=== PATIENT | female | born 1965 | race Two or more races ===

== ENCOUNTER 2025-02-07 23:54 | Emergency (ER) | payer OTHER ==
[2025-02-10] MEDS ORDERED: AMLODIPINE (03:23)
[2025-02-10] MEDS ORDERED: VAZALORE81 MG (03:23)
[2025-02-10] MEDS ORDERED: METFORMIN HCL500 MG (03:23)
[2025-02-10] MEDS ORDERED: HYDRODIURIL12.5 MG (03:24)
[2025-02-10] MEDS ORDERED: METROCREAM45 GM VAG (03:42)
== END 2025-02-08 | disposition home or self-care (01) ==
LOC: ER 23:54
DX: N76.0 Acute vaginitis (principal)

== ENCOUNTER → 2025-02-10 | Emergency (ER) | payer OTHER ==
[~2025-02-10] VITALS: Ht 162.6 cm; Wt 84.4 kg
[~2025-02-10] MED LIST: AMLODIPINE; HYDRODIURIL12.5 MG; METFORMIN HCL500 MG; METROCREAM45 GM VAG; VAZALORE81 MG
== END | disposition home or self-care (01) ==
LOC: ER 03:11
DX: N76.0 Acute vaginitis (principal); B96.89 Other specified bacterial agents as the cause of diseases classified elsewhere; E11.9 Type 2 diabetes mellitus without complications; Z79.84 Long term (current) use of oral hypoglycemic drugs

== ENCOUNTER 2025-03-15 22:21 | Emergency (ER) | payer OTHER ==
[~2025-03-15] VITALS: Ht 162.6 cm; Wt 81.6 kg
== END 2025-03-15 23:44 | disposition left against medical advice (07) ==
LOC: ER 22:21
DX: Z53.21 Procedure and treatment not carried out due to patient leaving prior to being seen by health care provider (principal)

== ENCOUNTER → 2025-04-02 | Emergency (ER) | payer OTHER | END | disposition left against medical advice (07) | LOC: ER 04:40 | DX: Z53.21 Procedure and treatment not carried out due to patient leaving prior to being seen by health care provider (principal) ==

== ENCOUNTER 2025-05-29 19:54 | Inpatient (IN) | payer OTHER ==
[~2025-05-29] VITALS: Ht 170.2 cm; Wt 81.6 kg
[2025-05-29] MEDS ORDERED: 0.9 % SODIUM CHLORIDE 1,000 ML IV STA (21:09)
[2025-05-29] MEDS ORDERED: FAMOTIDINE/PF 20 MG/2 ML VIAL IV STA (21:09)
[2025-05-29] MEDS ORDERED: ONDANSETRON HCL 2 MG/ML VIAL IV STA (21:09)
[2025-05-29] MEDS ORDERED: METOCLOPRAMIDE HCL 5 MG/ML VIAL IV ONE (21:15)
[2025-05-29] MEDS ORDERED: METOCLOPRAMIDE HCL 5 MG/ML VIAL ONE (21:15)
[2025-05-29] MEDS ORDERED: FAMOTIDINE/PF 20 MG/2 ML VIAL ONE (21:15)
[2025-05-29] MEDS ORDERED: ONDANSETRON HCL 2 MG/ML VIAL ONE (21:15)
[2025-05-29 21:38] LABS: BASO % 0.0 % (0.1-1.2); EOS # 0.00 (0.04-0.54); EOS % 0.0 % (0.7-7.0); LYMPH # 0.55 (1.18-3.74); LYMPH % 16.4 % (19.3-53.1); MEAN PLATELET VOLUME 9.30 fl (9.4-12.4); MONO # 0.39 (0.24-0.82); MONO % 11.6 % (4.7-12.5); NEUT # 2.40 (1.56-6.13); NEUT % 71.4 % (34.0-71.1); RED CELL DISTRIBUTION WIDTH 13.1 % (11.6-14.4)
[2025-05-29 22:08] LABS: BUN CREA RATIO 25.0 (7.0-25.0); CREATININE SERUM 1.08 mg/dL (0.55-1.02); GFR 51.75
[2025-05-29 22:28] LABS: GLUCOSE FASTING 230.0 mg/dL (65-100); OSMOLALITY SERUM 286.0 MOSM/KG (275-295)
[2025-05-29] MEDS ORDERED: POTASSIUM BICARBONATE/CIT AC 25 MEQ TABLET.EFF PO ONE (23:00)
[2025-05-29] MEDS ORDERED: POTASSIUM CHLORIDE/D5-0.9%NACL 40 MEQ/1,000 ML PIGGYBAG IV ONE (23:00)
[2025-05-30 00:58] LABS: BUN CREA RATIO 29.0 (7.0-25.0); CREATININE SERUM 0.95 mg/dL (0.55-1.02); GFR 60.0; OSMOLALITY SERUM 284.0 MOSM/KG (275-295)
[2025-05-30 01:22] LABS: GLUCOSE FASTING 208.0 mg/dL (65-100)
[2025-05-30] MEDS ORDERED: LACTOBACILLUS ACIDOPHILUS 1 CAP CAP PO STA (04:10)
[2025-05-30] MEDS ORDERED: LACTOBACILLUS ACIDOPHILUS 1 CAP CAP PO ONE (04:44)
[2025-05-30] MEDS ORDERED: CIPROFLOXACIN IN 5 % DEXTROSE 400 MG/200 ML PIGGYBAG IV STA (05:34)
[2025-05-30] MEDS ORDERED: CIPROFLOXACIN IN 5 % DEXTROSE 400 MG/200 ML PIGGYBAG IV ONE (05:46)
[2025-05-30] MEDS ORDERED: FAMOTIDINE/PF 20 MG in 0.9 % SODIUM CHLORIDE 8 ML IV PUSH SCH (09:26)
[2025-05-30] MEDS ORDERED: DEXTROSE 50 % IN WATER 0.5 G/ML DISP.SYRIN IV PRN (09:30)
[2025-05-30] MEDS ORDERED: 0.9 % SODIUM CHLORIDE 1,000 ML IV SCH (09:30)
[2025-05-30] MEDS ORDERED: INSULIN LISPRO 1,000 UNIT/10 ML UNITS SUBCUTANEO PRN (09:30)
[2025-05-30] MEDS ORDERED: ONDANSETRON HCL 4 MG in 0.9 % SODIUM CHLORIDE 50 ML IV PRN (09:30)
[2025-05-30] MEDS ORDERED: FAMOTIDINE/PF 20 MG/2 ML VIAL ONE (09:52)
[2025-05-30] MEDS ORDERED: METRONIDAZOLE/SODIUM CHLORIDE 500 MG/100 ML PIGGYBACK IV ONE (09:52)
[2025-05-30 10:55] VITALS: BP 120/80; O2SAT 96
[2025-05-30 11:12] LABS: INR 1.07
[2025-05-30] MEDS ORDERED: ST. JOSEPH ASPI81 M2 (13:40)
[2025-05-30] MEDS ORDERED: POTASSIUM CHLORIDE IN WATER 100 ML IV SCH (17:00)
[2025-05-30 17:26] LABS: URINE APPEARANCE Clear; URINE BILIRRUBIN Negative (NEGATIVE); URINE BLOOD Negative; URINE COLOR Yellow; URINE GLUCOSE Negative (NEGATIVE); URINE KETONE Negative (NEGATIVE); URINE LEUKOCYTE Trace; URINE NITRATE Negative; URINE PROTEIN Negative (NEGATIVE); URINE UROBILINOGEN 0.2 E.U./dl
[2025-05-30 17:31] LABS: URINE BACTERIA 7777.9 uL (0.0-1933); URINE EPITHELIAL CELLS 31.2 uL (0.0-38.8); URINE WBC 69.5 uL (0.0-23.2)
[2025-05-30 17:44] LABS: URINE CAST 0.29 uL (0.0-1.40); URINE RBC 1.4 uL (0.0-20.8)
[2025-05-30 18:09] VITALS: BP 126/76; O2SAT 97
[2025-05-30] MEDS ORDERED: CIPROFLOXACIN IN 5 % DEXTROSE 200 ML IV SCH (21:00)
[2025-05-31 02:22] VITALS: BP 146/83; O2SAT 93
[2025-05-31 08:07] LABS: BASO % 0.5 % (0.1-1.2); EOS # 0.00 (0.04-0.54); EOS % 0.0 % (0.7-7.0); LYMPH # 0.55 (1.18-3.74); LYMPH % 30.1 % (19.3-53.1); MEAN PLATELET VOLUME 10.00 fl (9.4-12.4); MONO # 0.23 (0.24-0.82); NEUT # 1.03 (1.56-6.13); NEUT % 56.3 % (34.0-71.1); RED CELL DISTRIBUTION WIDTH 13.1 % (11.6-14.4)
[2025-05-31 08:10] LABS: MONO % 12.6 % (4.7-12.5)
[2025-05-31 09:23] LABS: ALT/SGPT 34.0 U/L (12-78); AST/SGOT 31.0 U/L (15-37); BILIRUBIN TOTAL 0.9 mg/dL (0.3-1.2); BUN CREA RATIO 21.0 (7.0-25.0); CREATININE SERUM 0.57 mg/dL (0.55-1.02); GFR 108.19; GLOBULINA 3.3 G/DL (2.4-3.5); GLUCOSE FASTING 154.0 mg/dL (65-100); OSMOLALITY SERUM 286.0 MOSM/KG (275-295)
[2025-05-31 10:17] VITALS: BP 144/84; O2SAT 99
[2025-05-31] MEDS ORDERED: Cyanocobalamin/Mecobalamin 1 TAB.SL SL SCH (17:00)
[2025-05-31 18:07] VITALS: BP 149/79
[2025-05-31 21:11] LABS: FE 35.0 ug/dl (50-170)
[2025-06-01] MEDS ORDERED: PIPERACILLIN/TAZOBACTAM SODIUM 3.375 GM in DEXTROSE 5 % IN WATER 100 ML IV SCH
[2025-06-01 02:33] VITALS: BP 146/84; O2SAT 96
[2025-06-01] MEDS ORDERED: DIATRIZOATE MEGLUMINE, SODIUM 30 ML BOTTLE PO ONE (06:00)
[2025-06-01 07:58] LABS: ALT/SGPT 36.0 U/L (12-78); AST/SGOT 38.0 U/L (15-37); BILIRUBIN TOTAL 1.37 mg/dL (0.3-1.2); BUN CREA RATIO 11.0 (7.0-25.0); CREATININE SERUM 0.66 mg/dL (0.55-1.02); GFR 91.35; GLOBULINA 3.7 G/DL (2.4-3.5); GLUCOSE FASTING 175.0 mg/dL (65-100); LDH 320.0 U/L (84-246); OSMOLALITY SERUM 280.0 MOSM/KG (275-295)
[2025-06-01 08:35] LABS: BASO % 0.6 % (0.1-1.2); EOS # 0.00 (0.04-0.54); EOS % 0.0 % (0.7-7.0); LYMPH # 0.56 (1.18-3.74); LYMPH % 32.4 % (19.3-53.1); MEAN PLATELET VOLUME 10.00 fl (9.4-12.4); MONO # 0.17 (0.24-0.82); MONO % 9.8 % (4.7-12.5); NEUT # 0.98 (1.56-6.13); NEUT % 56.6 % (34.0-71.1); RED CELL DISTRIBUTION WIDTH 12.6 % (11.6-14.4)
[2025-06-01] MEDS ORDERED: LACTOBACILLUS ACIDOPHILUS 1 CAP CAP PO SCH (09:00)
[2025-06-01] MEDS ORDERED: SOD FERRIC GLUC COMPLX/SUCROSE 62.5 MG/5 ML AMPUL IV SCH (09:00)
[2025-06-01 09:16] VITALS: BP 140/72; O2SAT 96
[2025-06-01] MEDS ORDERED: ACETAMINOPHEN 500 MG GEL..CAP PO PRN (10:30)
[2025-06-01 19:24] VITALS: BP 126/90
[2025-06-02 01:10] VITALS: BP 140/82; O2SAT 97
[2025-06-03 13:30] LABS: FOLIC ACID > 20.00 ng/ml (4.78-20)
== END 2025-06-02 09:11 | disposition left against medical advice (07) | DRG 641 ==
LOC: ER 19:54 → MEDJ 05-30 10:12
PROVIDERS: General Practice; Internal Medicine Hematology & Oncology; Internal Medicine Infectious Disease; ADMIT Specialist; ATTEND Specialist
PROC: BW21ZZZ Computerized Tomography (CT Scan) of Abdomen and Pelvis (ICD-10-PCS; principal; 2025-05-30)
PROC: BW21YZZ Computerized Tomography (CT Scan) of Abdomen and Pelvis using Other Contrast (ICD-10-PCS; 2025-06-01)
DX: E87.6 Hypokalemia (principal); N17.8 Other acute kidney failure; R65.10 Systemic inflammatory response syndrome (SIRS) of non-infectious origin without acute organ dysfunction; E86.0 Dehydration; K52.9 Noninfective gastroenteritis and colitis, unspecified; D72.819 Decreased white blood cell count, unspecified; D64.9 Anemia, unspecified; E11.9 Type 2 diabetes mellitus without complications; Z79.4 Long term (current) use of insulin